=== PATIENT | female | born 1970 | race African-American/Black ===

== ENCOUNTER 2016-08-29 20:33 | Emergency (ER) | payer OTHER ==
[~2016-08-29] VITALS: Ht 170.2 cm; Wt 107.7 kg
[2016-08-29 21:02] VITALS: BP 144/90
[2016-08-29] MEDS ORDERED: IBUP-1547 PO (21:06)
[2016-08-29] MEDS ORDERED: MET500 PO (21:06)
[2016-08-29] MEDS ORDERED: KETOROLAC TROMETHAMINE 60 MG/2 ML VIAL IM ONE (21:45)
== END 2016-08-29 21:55 | disposition home or self-care (01) ==
LOC: EMS 20:34
DX: M25.552 Pain in left hip (principal); E11.9 Type 2 diabetes mellitus without complications; I10 Essential (primary) hypertension; E78.00 Pure hypercholesterolemia, unspecified; F12.90 Cannabis use, unspecified, uncomplicated
CPT/HCPCS: 96372; 99283; J1885

== ENCOUNTER 2016-12-25 13:13 | Emergency (ER) | payer OTHER ==
[~2016-12-25] VITALS: Ht 172.7 cm; Wt 103.2 kg
[~2016-12-25 13:13] MED LIST: IBUP-1547 PO; MET500 PO
[2016-12-25] MEDS ORDERED: KETOROLAC TROMETHAMINE 60 MG/2 ML VIAL IM ONE (14:15)
[2016-12-25 16:10] VITALS: BP 132/79
== END 2016-12-25 16:55 | disposition home or self-care (01) ==
LOC: EMS 13:14
DX: S20.219A Contusion of unspecified front wall of thorax, initial encounter (principal); F41.9 Anxiety disorder, unspecified; F32.9 Major depressive disorder, single episode, unspecified; E11.9 Type 2 diabetes mellitus without complications; I10 Essential (primary) hypertension; E78.00 Pure hypercholesterolemia, unspecified; Z88.8 Allergy status to other drugs, medicaments and biological substances; Y08.89XA Assault by other specified means, initial encounter; Y93.89 Activity, other specified; Y92.9 Unspecified place or not applicable; Y99.9 Unspecified external cause status
CPT/HCPCS: 71101; 73030; 73110; 80307; 96372; 99285; J1885

== ENCOUNTER 2017-05-11 14:28 | Emergency (ER) | payer OTHER ==
[~2017-05-11] VITALS: Ht 170.2 cm; Wt 105.9 kg
[2017-05-11 14:30] VITALS: BP 132/80
[2017-05-11] MEDS ORDERED: DOXY25TA29 PO (14:39)
[2017-05-11] MEDS ORDERED: ASPI-988 PO (14:39)
[2017-05-11] MEDS ORDERED: LIB5 PO (14:39)
[2017-05-11] MEDS ORDERED: PRED1 PO (14:39)
[2017-05-11 14:42] LABS: GLUCOSE,POINT OF CARE 145 MG/DL (70-110)
[2017-05-11 15:04] LABS: BASOPHILS # (AUTO) 0.01 K/uL (0.00-0.20); BASOPHILS % (AUTO) 0.1 % (0.0-2.0); EOSINOPHILS # (AUTO) 0.14 K/uL (0.00-0.70); EOSINOPHILS % (AUTO) 1.58 % (1.0-6.0); HEMATOCRIT 42.2 % (36-46); LYMPHOCYTES # (AUTO) 2.2 K/uL (1.0-4.8); LYMPHOCYTES % (AUTO) 25.4 % (22.0-44.0); MEAN CORPUSCULAR HEMOGLOBIN 30.8 pg (26.0-34.0); MEAN CORPUSCULAR HGB CONC 33.3 G/dL (31.0-37.0); MEAN CORPUSCULAR VOLUME 92 fL (80-100); MONOCYTES # (AUTO) 0.4 K/uL (0.1-1.0); MONOCYTES % (AUTO) 4.4 % (2.0-9.0); NEUTROPHILS % (AUTO) 68.6 % (40.0-70.0); PLATELET COUNT (AUTO) 278 K/uL (150-450); RED BLOOD CELL COUNT(AUTO) 4.57 MIL/uL (4.00-5.20); RED CELL DISTRIBUTION WIDTH 12.8 % (11.5-14.5); WHITE BLOOD COUNT (AUTO) 8.8 K/uL (4.5-11.0)
[2017-05-11] MEDS ORDERED: KETOROLAC TROMETHAMINE 30 MG/ML VIAL IM ONE (15:30)
[2017-05-11 15:40] LABS: ANION GAP 7 mmol/L (8-16); CALCIUM, TOTAL 8.8 mg/dL (8.8-10.5); CARBON DIOXIDE 31 mmol/L (22-29); CHLORIDE 106 mmol/L (98-107); CREATININE 0.82 mg/dL (0.60-1.30); GLOMERULAR FILTR. RATE CALC > 60 mL/min (>60); POTASSIUM 4.1 mmol/L (3.5-5.1); SODIUM SERUM 144 mmol/L (136-145); UREA NITROGEN, BLOOD 12 mg/dL (7-18)
[2017-05-11 15:47] LABS: ALANINE AMINOTRANSFERASE 34 U/L (12-78); ALBUMIN 3.6 g/dL (3.4-5.0); ASPARTATE AMINOTRANSFERASE 23 U/L (15-37); BILIRUBIN,TOTAL 0.4 mg/dL (0.1-1.0); TOTAL PROTEIN, SERUM 6.6 g/dL (6.4-8.2)
== END 2017-05-11 17:11 | disposition home or self-care (01) ==
LOC: EMS 14:30
DX: M25.551 Pain in right hip (principal); G43.909 Migraine, unspecified, not intractable, without status migrainosus; E11.9 Type 2 diabetes mellitus without complications; E78.00 Pure hypercholesterolemia, unspecified; I10 Essential (primary) hypertension; Z88.8 Allergy status to other drugs, medicaments and biological substances
CPT/HCPCS: 36415; 72170; 80053; 82962; 85025; 96372; 99285; G0480; J1885

== ENCOUNTER 2017-10-13 13:57 | Emergency (ER) | payer OTHER ==
[~2017-10-13] VITALS: Ht 167.6 cm; Wt 100.0 kg
[~2017-10-13 13:57] MED LIST changes: +ASPI-988 PO; +DOXY25TA29 PO; -IBUP-1547 PO; +LIB5 PO; -MET500 PO; +PRED1 PO
[2017-10-13] MEDS ORDERED: HYDROCODONE/ACETAMINOPHEN 5-325 MG TABLET PO ONE (15:45)
[2017-10-13] MEDS ORDERED: KETOROLAC TROMETHAMINE 30 MG/ML VIAL IM ONE (15:45)
[2017-10-13 16:46] VITALS: BP 148/87
== END 2017-10-13 18:36 | disposition home or self-care (01) ==
LOC: EMS 13:59
DX: S20.212A Contusion of left front wall of thorax, initial encounter (principal); E11.9 Type 2 diabetes mellitus without complications; E78.00 Pure hypercholesterolemia, unspecified; I10 Essential (primary) hypertension; F17.210 Nicotine dependence, cigarettes, uncomplicated; Z88.8 Allergy status to other drugs, medicaments and biological substances; W19.XXXA Unspecified fall, initial encounter; Y93.89 Activity, other specified; Y92.89 Other specified places as the place of occurrence of the external cause; Y99.8 Other external cause status
CPT/HCPCS: 71101; 96372; 99284; J1885

== ENCOUNTER 2018-05-07 23:53 | Emergency (ER) | payer OTHER ==
[~2018-05-07] VITALS: Ht 167.6 cm; Wt 106.0 kg
[2018-05-08] MEDS ORDERED: LIB5 PO (00:20)
[2018-05-08] MEDS ORDERED: NALT50TA6 PO (00:20)
[2018-05-08 02:32] LABS: BASOPHILS % (AUTO) 0.9 % (0.0-2.0); HEMATOCRIT 35.2 % (36-46); LYMPHOCYTES # (AUTO) 2.4 K/uL (1.0-4.8); LYMPHOCYTES % (AUTO) 23.2 % (22.0-44.0); MEAN CORPUSCULAR HEMOGLOBIN 27.2 pg (26.0-34.0); MEAN CORPUSCULAR HGB CONC 34.2 G/dL (31.0-37.0); MEAN CORPUSCULAR VOLUME 80 fL (80-100); MONOCYTES # (AUTO) 0.9 K/uL (0.1-1.0); MONOCYTES % (AUTO) 8.4 % (2.0-9.0); NEUTROPHILS # (AUTO) 6.9 K/uL (1.8-7.7); NEUTROPHILS % (AUTO) 66.5 % (40.0-70.0); PLATELET COUNT (AUTO) 303 K/uL (150-450); RED BLOOD CELL COUNT(AUTO) 4.41 MIL/uL (4.00-5.20); RED CELL DISTRIBUTION WIDTH 14.4 % (11.5-14.5)
[2018-05-08 02:43] LABS: ANION GAP 6 mmol/L (8-16); CALCIUM, TOTAL 8.6 mg/dL (8.8-10.5); CARBON DIOXIDE 30 mmol/L (22-29); CHLORIDE 105 mmol/L (98-107); CREATININE 0.89 mg/dL (0.60-1.30); GLOMERULAR FILTR. RATE CALC > 60 mL/min (>60); GLUCOSE,RANDOM 137 mg/dL (70-110); SODIUM SERUM 141 mmol/L (136-145); UREA NITROGEN, BLOOD 13 mg/dL (7-18)
[2018-05-08 02:49] LABS: ALANINE AMINOTRANSFERASE 22 U/L (12-78); ALBUMIN 3.2 g/dL (3.4-5.0); ALKALINE PHOSPHATASE 80 U/L (46-116); ASPARTATE AMINOTRANSFERASE 16 U/L (15-37); BILIRUBIN,TOTAL 0.3 mg/dL (0.1-1.0); LIPASE 162 U/L (73-393); TOTAL PROTEIN, SERUM 6.6 g/dL (6.4-8.2)
[2018-05-08] MEDS ORDERED: SODIUM CHLORIDE 0.9% 1,000 ML IV ONE (03:45)
[2018-05-08] MEDS ORDERED: SODIUM CHLORIDE 0.9% 100 ML ONE (04:24)
[2018-05-08] MEDS ORDERED: IOVERSOL 350 MG/ML 150 ML VIAL ONE (04:24)
[2018-05-08] MEDS ORDERED: ONDANSETRON HCL 4 MG/2 ML VIAL IVP ONE (04:30)
[2018-05-08] MEDS ORDERED: MORPHINE SULFATE 2 MG/ML SYRINGE IVP ONE (04:30)
[2018-05-08] MEDS ORDERED: ONDANSETRON HCL 4 MG TABLET PO ONE (05:00)
[2018-05-08 05:52] VITALS: BP 101/61
== END 2018-05-08 06:34 | disposition home or self-care (01) ==
LOC: EMS 23:54
DX: R07.89 Other chest pain (principal); I10 Essential (primary) hypertension; E78.00 Pure hypercholesterolemia, unspecified; E11.9 Type 2 diabetes mellitus without complications; F41.9 Anxiety disorder, unspecified; F32.9 Major depressive disorder, single episode, unspecified; F17.210 Nicotine dependence, cigarettes, uncomplicated; Z88.8 Allergy status to other drugs, medicaments and biological substances
CPT/HCPCS: 36415; 71045; 71275; 80053; 83690; 84484; 85025; 85379; 93005; 96374; 96375; 99285; J2270; J2405; J7030; J7050; Q9967; Q0162

== ENCOUNTER 2018-12-27 21:59 | Emergency (ER) | payer OTHER ==
[~2018-12-27 21:59] MED LIST changes: -ASPI-988 PO; -DOXY25TA29 PO; -LIB5 PO; +LORA1TAB3 PO; -PRED1 PO; +ZOLP10TA7 PO
== END 2018-12-27 22:30 | disposition left against medical advice (07) ==
LOC: EMS 22:01
DX: R20.0 Anesthesia of skin (principal); Z53.21 Procedure and treatment not carried out due to patient leaving prior to being seen by health care provider

== ENCOUNTER 2020-04-27 15:42 | Emergency (ER) | payer OTHER ==
[~2020-04-27] VITALS: Ht 172.7 cm; Wt 95.5 kg
[~2020-04-27 15:42] MED LIST changes: +LORA-1000 PO; -LORA1TAB3 PO; -ZOLP10TA7 PO; +ZOLP10TA8 PO
[2020-04-27] MEDS ORDERED: HYDROCODONE/ACETAMINOPHEN 5-325 MG TABLET PO ONE (17:00)
[2020-04-27] MEDS ORDERED: IBUPROFEN 600 MG TABLET PO ONE (17:00)
[2020-04-27 17:13] VITALS: BP 154/79
== END 2020-04-27 17:16 | disposition home or self-care (01) ==
LOC: EMS 15:42
DX: K05.10 Chronic gingivitis, plaque induced (principal); F17.210 Nicotine dependence, cigarettes, uncomplicated; F12.90 Cannabis use, unspecified, uncomplicated; E78.00 Pure hypercholesterolemia, unspecified; E11.9 Type 2 diabetes mellitus without complications; I10 Essential (primary) hypertension
CPT/HCPCS: 99406

== ENCOUNTER 2021-02-07 22:13 | Emergency (ER) | payer OTHER ==
[~2021-02-07] VITALS: Ht 171.4 cm; Wt 105.9 kg
[2021-02-07 22:32] VITALS: BP 149/88
[2021-02-07] MEDS ORDERED: BUPR75 PO (22:38)
[2021-02-07] MEDS ORDERED: ALBU8HFA IH (22:38)
[2021-02-07] MEDS ORDERED: GABA-1216 PO (22:38)
[2021-02-07] MEDS ORDERED: LIB5 PO (22:38)
[2021-02-08] MEDS ORDERED: PB/HYOSCY/ATR/SCOP/LIDO/MAALOX 55 ML BOTTLE PO ONE (00:15)
[2021-02-08] MEDS ORDERED: FAMOTIDINE 10 MG/ML 2 ML VIAL IVP ONE (00:15)
[2021-02-08] MEDS ORDERED: ChlordiazePOXIDE HCL 25 MG CAPSULE PO ONE (00:15)
[2021-02-08] MEDS ORDERED: OMEPRAZOLE 20 MG CAPSULE PO ONE (00:30)
[2021-02-08] MEDS ORDERED: MAGNESIUM SULFATE 2 GM, MVI, ADULT NO.1 WITH VIT K 10 ML, THIAMINE 100 MG, FOLIC ACID 1... IV ONE ×5 (00:30)
[2021-02-08 01:03] LABS: APPEARANCE,URINE TURBID (CLEAR); BILIRUBIN,URINE NEGATIVE (NEGATIVE); GLUCOSE, URINE (UA) NEGATIVE (NEGATIVE); KETONES,URINE NEGATIVE (NEGATIVE); LEUKOCYTE ESTERASE ,URINE NEGATIVE (NEGATIVE); NITRATE,URINE NEGATIVE (NEGATIVE); OCCULT BLOOD,URINE NEGATIVE (NEGATIVE); PH,URINE 5.5 (5.0-8.0); PROTEIN,URINE NEGATIVE (NEGATIVE); UROBILINOGEN,URINE 0.2 mg/dL (<=1.0)
[2021-02-08 01:06] LABS: AMPHET/METH SCREEN,URINE NEGATIVE (NEGATIVE); BARBITURATE SCREEN, URINE NEGATIVE (NEGATIVE); BENZODIAZEPINES SCREEN,URINE POSITIVE (NEGATIVE); CANNABINOID SCREEN,URINE POSITIVE (NEGATIVE); COCAINE SCREEN,URINE NEGATIVE (NEGATIVE); METHADONE SCREEN, URINE NEGATIVE (NEGATIVE); OPIATE SCREEN,URINE NEGATIVE (NEGATIVE)
[2021-02-08 01:07] LABS: PHENCYCLIDINE SCREEN,URINE NEGATIVE (NEGATIVE)
[2021-02-08 01:10] LABS: BACTERIA,URINE Moderate /HPF (None Seen); RBC,URINE 0-2 /HPF (0-2); SQUAMOUS EPITHELIAL CELL,UR Moderate /LPF (None Seen); WBC,URINE 0-2 /HPF (0-5)
== END 2021-02-08 00:30 | disposition left against medical advice (07) ==
LOC: EMS 22:14
DX: R10.11 Right upper quadrant pain (principal); F41.9 Anxiety disorder, unspecified; F32.9 Major depressive disorder, single episode, unspecified; J44.9 Chronic obstructive pulmonary disease, unspecified; E11.9 Type 2 diabetes mellitus without complications; E78.00 Pure hypercholesterolemia, unspecified; I10 Essential (primary) hypertension; F17.210 Nicotine dependence, cigarettes, uncomplicated; F12.90 Cannabis use, unspecified, uncomplicated; F19.90 Other psychoactive substance use, unspecified, uncomplicated; Z88.8 Allergy status to other drugs, medicaments and biological substances
CPT/HCPCS: 81001; 87086; 99283; J3490

== ENCOUNTER → 2021-02-24 | Day surgery (SDC) | payer OTHER ==
[2021-02-23 14:03] LABS: COVID AG,FIA SOURCE NASOPHARYNGEAL
[~2021-02-24] MED LIST changes: +ALBU8HFA IH; -LORA-1000 PO; +SODIUM CHLORIDE 0.9% 1,000 ML IV ONE; -ZOLP10TA8 PO
== END | disposition home or self-care (01) ==
LOC: SURGERY 05:00
PROVIDERS: ATTEND Internal Medicine Critical Care Medicine
DX: R05 Cough (principal); Z53.8 Procedure and treatment not carried out for other reasons
CPT/HCPCS: 87426; C9803

== ENCOUNTER → 2021-06-16 | Day surgery (SDC) | payer OTHER ==
[2021-06-15 11:57] LABS: COVID AG,FIA SOURCE NASOPHARYNGEAL
[~2021-06-16] MED LIST changes: +SODIUM CHLORIDE 0.9% 1,000 ML ONE
== END | disposition home or self-care (01) ==
LOC: SURGERY 05:00
PROVIDERS: ATTEND Internal Medicine Critical Care Medicine
DX: R05.9 Cough, unspecified (principal); Z53.9 Procedure and treatment not carried out, unspecified reason
CPT/HCPCS: 84703; 87426; C9803; J7030

== ENCOUNTER 2021-06-29 15:37 | Emergency (ER) | payer OTHER ==
[~2021-06-29] VITALS: Ht 170.2 cm; Wt 104.5 kg
[~2021-06-29 15:37] MED LIST changes: -SODIUM CHLORIDE 0.9% 1,000 ML IV ONE; -SODIUM CHLORIDE 0.9% 1,000 ML ONE
[2021-06-29 16:01] VITALS: BP 156/100
[2021-06-29] MEDS ORDERED: KETOROLAC TROMETHAMINE 30 MG/ML VIAL IM ONE (16:45)
== END 2021-06-29 18:46 | disposition home or self-care (01) ==
LOC: EMS 15:42
DX: G89.29 Other chronic pain (principal); M54.6 Pain in thoracic spine; M54.2 Cervicalgia; I10 Essential (primary) hypertension; E11.9 Type 2 diabetes mellitus without complications; E78.00 Pure hypercholesterolemia, unspecified; J44.9 Chronic obstructive pulmonary disease, unspecified; F41.9 Anxiety disorder, unspecified; F12.90 Cannabis use, unspecified, uncomplicated; F15.90 Other stimulant use, unspecified, uncomplicated; F17.210 Nicotine dependence, cigarettes, uncomplicated; Z88.8 Allergy status to other drugs, medicaments and biological substances; Z79.899 Other long term (current) drug therapy; V49.49XA Driver injured in collision with other motor vehicles in traffic accident, initial encounter; Y93.89 Activity, other specified; Y92.89 Other specified places as the place of occurrence of the external cause; Y99.8 Other external cause status
CPT/HCPCS: 96372; 99283; J1885

== ENCOUNTER 2021-07-05 06:41 | Day surgery (SDC) | payer OTHER ==
[~2021-07-05] VITALS: Ht 170.2 cm; Wt 100.0 kg
[2021-07-05] MEDS ORDERED: BENZOCAINE 20% 50 MCG/SPRAY 57 GM TP ONE (06:42)
[2021-07-05] MEDS ORDERED: ALBUTEROL SULFATE 2.5 MG/0.5 ML NEB SOLUTION NEB ONE (06:42)
[2021-07-05] MEDS ORDERED: LIDOCAINE 2% 30 ML JELLY TP ONE (06:42)
[2021-07-05] MEDS ORDERED: SODIUM CHLORIDE 0.9% 1,000 ML IV ONE (06:45)
[2021-07-05] MEDS ORDERED: SODIUM CHLORIDE 0.9% 1,000 ML ONE ×2 (07:36→07:58)
[2021-07-05 07:47] LABS: COVID AG,FIA SOURCE NASOPHARYNGEAL
[2021-07-05] MEDS ORDERED: MIDAZOLAM HCL 5 MG/ML VIAL ONE (08:18)
[2021-07-05] MEDS ORDERED: FentaNYL CITRATE PF 100 MCG/2 ML VIAL ONE (08:18)
[2021-07-05] MEDS ORDERED: MethylPREDNISolone SOD SUCC 125 MG/2 ML VIAL ONE (11:28)
[2021-07-05] MEDS ORDERED: MethylPREDNISolone SOD SUCC 125 MG/2 ML VIAL IVP ONE (11:55)
[2021-07-05] MEDS ORDERED: OXYGEN THERAPY IH SCH (20:00)
== END 2021-07-05 13:55 | disposition home or self-care (01) ==
LOC: SURGERY 06:41
PROVIDERS: ATTEND Internal Medicine Critical Care Medicine
DX: J38.4 Edema of larynx (principal); B37.0 Candidal stomatitis; J43.9 Emphysema, unspecified; Z88.8 Allergy status to other drugs, medicaments and biological substances; Z87.01 Personal history of pneumonia (recurrent)
CPT/HCPCS: 31623; 31624; 71045; 84703; 87015; 87070; 87101; 87206; 87220; 87426; 88108; 88184; 88185; 88312; C9803; J2250; J2930; J3010; J7030; J7613

== ENCOUNTER 2021-07-14 20:06 | Inpatient (IN) | payer OTHER ==
[~2021-07-14] VITALS: Ht 170.2 cm; Wt 102.7 kg
[2021-07-14] MEDS ORDERED: ChlordiazePOXIDE HCL 25 MG CAPSULE PO ONE (23:15)
[2021-07-14] MEDS ORDERED: ALBUTEROL SULFATE 2.5 MG/0.5 ML NEB SOLUTION NEB ONE (23:15)
[2021-07-14 23:27] LABS: AMPHET/METH SCREEN,URINE NEGATIVE (NEGATIVE); BARBITURATE SCREEN, URINE NEGATIVE (NEGATIVE); BENZODIAZEPINES SCREEN,URINE POSITIVE (NEGATIVE); CANNABINOID SCREEN,URINE NEGATIVE (NEGATIVE); COCAINE SCREEN,URINE NEGATIVE (NEGATIVE); METHADONE SCREEN, URINE NEGATIVE (NEGATIVE); OPIATE SCREEN,URINE POSITIVE (NEGATIVE)
[2021-07-14 23:33] LABS: PHENCYCLIDINE SCREEN,URINE NEGATIVE (NEGATIVE)
[2021-07-14] MEDS ORDERED: 0.9% SODIUM CHLORIDE 5 ML NEB SOLUTION NEB ONE (23:35)
[2021-07-15] MEDS ORDERED: ONDANSETRON HCL 4 MG/2 ML VIAL IVP PRN ×2 (00:30)
[2021-07-15] MEDS ORDERED: LORazepam 2 MG TABLET PO PRN (00:30)
[2021-07-15] MEDS ORDERED: ACETAMINOPHEN 325 MG TABLET PO PRN (00:30)
[2021-07-15] MEDS ORDERED: 0.9% SODIUM CHLORIDE 10 ML SYRINGE IVP PRN (00:30)
[2021-07-15] MEDS ORDERED: 1: MAGNESIUM SULFATE 2 GM, MVI, ADULT NO.1 WITH VIT K 10 ML, THIAMINE 100 MG, FOLIC ACID IV SCH ×5 (01:00)
[2021-07-15 07:28] LABS: COVID AG,FIA SOURCE NASAL SWAB
[2021-07-15 07:58] VITALS: BP 128/68
[2021-07-15] MEDS ORDERED: HEPARIN SODIUM,PORCINE 5,000 UNITS/ML VIAL SQ SCH (08:00)
[2021-07-16] MEDS ORDERED: LORazepam 2 MG TABLET PO PRN (07:00)
[2021-07-16] MEDS ORDERED: LORazepam 2 MG TABLET PO SCH (09:00)
[2021-07-18] MEDS ORDERED: LORazepam 1 MG TABLET PO PRN (07:00)
[2021-07-18] MEDS ORDERED: LORazepam 1 MG TABLET PO SCH (09:00)
[2021-07-19] MEDS ORDERED: LORazepam 1 MG TABLET PO PRN (07:00)
== END 2021-07-15 09:18 | disposition home or self-care (01) | DRG 52 ==
LOC: EMS 20:18 → 6N 07-15 05:36
PROVIDERS: ADMIT Internal Medicine; ATTEND Internal Medicine
DX: G93.40 Encephalopathy, unspecified (principal); E66.9 Obesity, unspecified; F10.239 Alcohol dependence with withdrawal, unspecified; F10.20 Alcohol dependence, uncomplicated
CPT/HCPCS: 71045; 94640; 99285; G0480; J1644; J2405; J3411; J3475; J3490; J7030; 36415-L1; 36415-TC; J7613

== ENCOUNTER 2021-07-17 23:11 | Emergency (ER) | payer OTHER ==
[~2021-07-17] VITALS: Ht 170.2 cm; Wt 102.7 kg
[2021-07-18 00:34] LABS: BASOPHILS % (AUTO) 0.7 % (0.0-2.0); EOSINOPHILS % (AUTO) 1.9 % (1.0-6.0); HEMATOCRIT 30.5 % (36-46); HEMOGLOBIN 9.7 g/dL (12.0-16.0); LYMPHOCYTES # (AUTO) 1.2 K/uL (1.0-4.8); LYMPHOCYTES % (AUTO) 21.2 % (22.0-44.0); MEAN CORPUSCULAR HEMOGLOBIN 22.7 pg (26.0-34.0); MEAN CORPUSCULAR HGB CONC 31.9 G/dL (31.0-37.0); MEAN CORPUSCULAR VOLUME 71 fL (80-100); MONOCYTES # (AUTO) 0.7 K/uL (0.1-1.0); MONOCYTES % (AUTO) 12.6 % (2.0-9.0); NEUTROPHILS # (AUTO) 3.5 K/uL (1.8-7.7); NEUTROPHILS % (AUTO) 63.6 % (40.0-70.0); PLATELET COUNT (AUTO) 322 K/uL (150-450); RED BLOOD CELL COUNT(AUTO) 4.27 MIL/uL (4.00-5.20); RED CELL DISTRIBUTION WIDTH 19.3 % (11.5-14.5)
[2021-07-18 00:42] LABS: ANION GAP 2 mmol/L (8-16); CALCIUM, TOTAL 8.8 mg/dL (8.8-10.5); CARBON DIOXIDE 32 mmol/L (22-29); CHLORIDE 110 mmol/L (98-107); CREATININE 0.75 mg/dL (0.60-1.30); GLOMERULAR FILTR. RATE CALC > 60 mL/min (>60); GLUCOSE,RANDOM 112 mg/dL (70-110); SODIUM SERUM 144 mmol/L (136-145); UREA NITROGEN, BLOOD 16 mg/dL (7-18)
[2021-07-18 00:50] LABS: PROTHROMBIN TIME 10.4 SEC (9.4-11.6)
[2021-07-18 00:53] LABS: ALANINE AMINOTRANSFERASE 28 U/L (12-78); ALBUMIN 3.4 g/dL (3.4-5.0); ALKALINE PHOSPHATASE 62 U/L (46-116); ASPARTATE AMINOTRANSFERASE 19 U/L (15-37); BILIRUBIN,TOTAL 0.3 mg/dL (0.1-1.0); HCG,QUANTITATIVE 2 mIU/mL (0-6); LIPASE 100 U/L (73-393); TOTAL PROTEIN, SERUM 6.9 g/dL (6.4-8.2)
[2021-07-18] MEDS ORDERED: ONDANSETRON HCL 4 MG/2 ML VIAL IVP ONE (04:00)
[2021-07-18] MEDS ORDERED: ChlordiazePOXIDE HCL 25 MG CAPSULE PO ONE (04:00)
[2021-07-18] MEDS ORDERED: ACETAMINOPHEN 500 MG TABLET PO ONE (04:00)
[2021-07-18] MEDS ORDERED: PANTOPRAZOLE SODIUM 40 MG/VIAL IVP ONE (04:00)
[2021-07-18] MEDS ORDERED: MAG HYDROX/AL HYDROX/SIMETH 30 ML SUSP UDCUP PO ONE (04:00)
[2021-07-18 05:13] LABS: COVID AG,FIA SOURCE NASOPHARYNGEAL
[2021-07-18] MEDS ORDERED: IOHEXOL 350 MG/ML 100 ML VIAL ONE (06:02)
[2021-07-18] MEDS ORDERED: SODIUM CHLORIDE 0.9% 100 ML ONE (06:02)
[2021-07-18] MEDS ORDERED: CefTRIAXone 1 GM/DEXTROSE 50 ML IV ONE (06:15)
[2021-07-18] MEDS ORDERED: ACETAMINOPHEN 325 MG TABLET PO PRN ×2 (06:45→07:45)
[2021-07-18] MEDS ORDERED: ONDANSETRON HCL 4 MG/2 ML VIAL IVP PRN ×2 (06:45→07:45)
[2021-07-18] MEDS ORDERED: 0.9% SODIUM CHLORIDE 10 ML SYRINGE IVP PRN ×2 (06:45→07:45)
[2021-07-18 07:00] VITALS: BP 144/92
[2021-07-18] MEDS ORDERED: PANTOPRAZOLE SODIUM 80 MG in SODIUM CHLORIDE 0.9% 100 ML IV SCH (07:00)
[2021-07-18] MEDS ORDERED: ChlordiazePOXIDE HCL 25 MG CAPSULE PO PRN (07:30)
[2021-07-18] MEDS ORDERED: LORazepam 2 MG/ML VIAL IVP PRN (07:30)
[2021-07-18] MEDS ORDERED: IPRATROPIUM BROMIDE 0.5 MG/2.5 ML NEB SOLUTION NEB PRN (07:45)
[2021-07-18] MEDS ORDERED: ALBUTEROL SULFATE 2.5 MG/0.5 ML NEB SOLUTION NEB PRN (07:45)
[2021-07-18] MEDS ORDERED: MORPHINE SULFATE 2 MG/ML SYRINGE IVP PRN (07:45)
[2021-07-18 07:59] LABS: HEMATOCRIT 27.7 % (36-46)
[2021-07-18] MEDS ORDERED: 1: MAGNESIUM SULFATE 2 GM, MVI, ADULT NO.1 WITH VIT K 10 ML, THIAMINE 100 MG, FOLIC ACID IV SCH ×5 (08:00)
[2021-07-18 08:28] LABS: % IRON SATURATION 2.9 % (22-44)
[2021-07-18] MEDS ORDERED: PEG 3350/NA SULF,BICARB,CL/KCL 4000 ML SOLUTION PO ONE ×2 (08:30→14:00)
[2021-07-18] MEDS ORDERED: PANTOPRAZOLE SODIUM 40 MG/VIAL IVP SCH (21:00)
[2021-07-19] MEDS ORDERED: CefTRIAXone 1 GM/DEXTROSE 50 ML IV SCH (08:00)
== END 2021-07-18 13:30 | disposition left against medical advice (07) ==
LOC: EMS 23:14
DX: K92.2 Gastrointestinal hemorrhage, unspecified (principal); F10.20 Alcohol dependence, uncomplicated; F17.210 Nicotine dependence, cigarettes, uncomplicated; Z88.8 Allergy status to other drugs, medicaments and biological substances; Z79.899 Other long term (current) drug therapy; Z20.822 Contact with and (suspected) exposure to COVID-19
CPT/HCPCS: 36415; 74177; 80053; 82271; 83540; 83550; 83690; 84702; 85014; 85018; 85025; 85610; 85730; 87426; 96365; 96366; 96367; 96368; 96375; 99285; C9113; G0480; J0696; J2405; J3411; J3475; J3490 ×2; J7030; J7050; Q9967